=== PATIENT | female | born 1985 | race Caucasian/White ===

== ENCOUNTER 2025-02-10 09:17 | Emergency (ER) | payer OTHER ==
[~2025-02-10] VITALS: Ht 170.2 cm; Wt 65.8 kg
[2025-02-10 09:20] VITALS: BP 116/69
[2025-02-10] MEDS ORDERED: OXYCODONE/APAP 5-325 MG TABLET ONE (09:47)
[2025-02-10 09:49] LABS: PLATELET COUNT (AUTO) 275 K/uL (179-408); RED BLOOD CELL COUNT(AUTO) 3.89 MIL/uL (3.63-4.92); RED CELL DISTRIBUTION WIDTH 11.8 % (12.3-17.7); WHITE BLOOD COUNT (AUTO) 6.4 K/uL (3.8-11.8)
[2025-02-10] MEDS: OXYCODONE/APAP 5-325 MG TABLET PO ONE (09:50)
[2025-02-10 10:14] LABS: CREATININE 0.6 mg/dL (0.6-1.3); SODIUM SERUM 138.0 mmol/L (136-145); UREA NITROGEN, BLOOD 11.0 mg/dL (7-18)
[2025-02-10 10:26] LABS: ASPARTATE AMINOTRANSFERASE 11.0 U/L (15-37); TOTAL PROTEIN, SERUM 7.6 g/dL (6.4-8.2)
[2025-02-10] MEDS ORDERED: CHOLECALCIFEROL 1,000 UNIT TABLET ONE (11:16)
[2025-02-10] MEDS: CHOLECALCIFEROL 1,000 UNIT TABLET PO ONE (11:20)
[2025-02-10] MEDS ORDERED: OXYC-128 PO (14:12)
[2025-02-10] MEDS ORDERED: NAPR500T6 PO (14:12)
[2025-02-10 14:25] VITALS: BP 116/69; O2SAT 99
[2025-02-11] MEDS ORDERED: CEPH500C2 PO (14:52)
== END 2025-02-10 14:25 | disposition home or self-care (01) ==
LOC: ER 09:17
DX: R22.32 Localized swelling, mass and lump, left upper limb (principal); M25.532 Pain in left wrist
CPT/HCPCS: 36415; 73110; 84550; 85025; 85651; 86140; 87040; A4606; A4663

== ENCOUNTER 2025-02-11 11:46 | Emergency (ER) | payer OTHER ==
[~2025-02-11] VITALS: Ht 170.2 cm; Wt 65.8 kg
[~2025-02-11 11:46] MED LIST: NAPR500T6 PO; OXYC-128 PO
[2025-02-11 12:04] VITALS: BP 110/63
[2025-02-11] MEDS ORDERED: CEFAZOLIN 1 G VIAL ONE (12:41)
[2025-02-11] MEDS: CEFAZOLIN 1 G in IV DEXTROSE 5% 50 ML IV ONE (12:50)
[2025-02-11 12:55] LABS: PLATELET COUNT (AUTO) 314 K/uL (179-408); RED BLOOD CELL COUNT(AUTO) 3.98 MIL/uL (3.63-4.92); RED CELL DISTRIBUTION WIDTH 11.8 % (12.3-17.7); WHITE BLOOD COUNT (AUTO) 9.9 K/uL (3.8-11.8)
[2025-02-11 13:07] LABS: ERYTHROCYTE SEDIMENTATION RATE 19 MM/HR (0-20)
[2025-02-11] MEDS: PROPOFOL 100 ML IV PRN (13:56)
[2025-02-11] MEDS ORDERED: CEPH500C2 PO (14:52)
[2025-02-11 15:15] VITALS: BP 104/60; TEMP 97.7; O2SAT 99
== END 2025-02-11 15:15 | disposition home or self-care (01) ==
LOC: ER 11:46
DX: L03.114 Cellulitis of left upper limb (principal)
CPT/HCPCS: 99284; 96365; 85025; 85651; 86140; 36415; J0690; A4606; A4663